=== PATIENT | male | born 1940 | race Caucasian/White ===

== ENCOUNTER 2017-02-09 23:40 | Emergency (ER) | payer MEDICARE ==
--- NOTE | ~2017-02-09 | CR173 ---
[facility] A Service of [facility] & [facility] RADIOLOGY TEXT RESULTS PATIENT: NOEMI NEWMAN LOCATION: [facility] : 38 UNIT #: [id number] AGE: [address]: Trung Villar MD SEX: M ORDER DR: [id number] [facility] [address] [place], [place] [address] [id number] E MR#: [id number] Acc #: [id number] NAME: NOEMI NEWMAN : 1940 SEX: M STUDY DATE/TIME: 02/10/2017 1:47 UNIT: [facility] ROOM: STUDY DESCRIPTION: CR Knee 3 Views Rt Attending Physician: John Villar M.D. Ordering Physician: John Villar M.D. Primary Care Physician: No Primary Care Physician MEDICAL IMAGING REPORT This report is preliminary unless electronic signature is present EXAM 3-view right knee HISTORY Bilateral knee pain onset today. FINDINGS 3 views of the right knee demonstrates no fracture or dislocation. Mild degenerative changes right knee with medial joint space narrowing developing marginal osteophytes. No joint effusion. Arterial vascular calcifications noted. Generalized osteopenia. IMPRESSION Osteopenia and early degenerative change of the right knee. No acute findings. Dictated by... Charles España M.D. THIS IS AN ELECTRONICALLY VERIFIED REPORT Charles España M.D. at 02/10/2017 10:33 PM YAIMA/irena TD: 02/10/2017 03:04 JOB #: [id number] MEDICAL IMAGING REPORT Page 1 of 1 COPY
--- NOTE | ~2017-02-09 | CR172 ---
[facility] A Service of [facility] & [facility] RADIOLOGY TEXT RESULTS PATIENT: NOEMI NEWMAN LOCATION: [facility] : 38 UNIT #: [id number] AGE: [address]: Trung Villar MD SEX: M ORDER DR: [id number] [facility] [address] [place], [place] [address] [id number] E MR#: [id number] Acc #: [id number] NAME: NOEMI NEWMAN : 1940 SEX: M STUDY DATE/TIME: 02/10/2017 1:50 UNIT: [facility] ROOM: STUDY DESCRIPTION: CR Knee 3 Views Lt Attending Physician: John Villar M.D. Ordering Physician: John Villar M.D. Primary Care Physician: No Primary Care Physician MEDICAL IMAGING REPORT This report is preliminary unless electronic signature is present EXAM Left knee 3 views HISTORY Bilateral knee pain onset today. FINDINGS 3 views of the left knee demonstrates mild degenerative changes left knee particularly involving the patellofemoral joint. Generalized osteopenia. No fracture or dislocation. No joint effusion. Arterial vascular calcifications noted. IMPRESSION Generalized osteopenia and early degenerative changes left knee particularly in the patellofemoral joint. No acute findings Dictated by... Charles España M.D. THIS IS AN ELECTRONICALLY VERIFIED REPORT Charles España M.D. at 02/10/2017 10:33 PM YAIMA/irena TD: 02/10/2017 03:05 JOB #: [id number] MEDICAL IMAGING REPORT Page 1 of 1 COPY
[~2017-02-09 23:40] MED LIST: ACETAMINOPHEN PO; CERTAGEN PO; COLACE PO; CYANOCOBAL1000 MCG/M INJ; FLOMAX0.4 MG PO; MILK OF MAGNESIA PO; PERCOCET10 PO; PRILOSEC PO; TRAZODONE PO
== END 2017-02-10 06:13 | disposition home or self-care (01) ==
LOC: CED 23:40
DX: S80.02XA Contusion of left knee, initial encounter (principal); S80.01XA Contusion of right knee, initial encounter; I10 Essential (primary) hypertension; M19.90 Unspecified osteoarthritis, unspecified site; F17.210 Nicotine dependence, cigarettes, uncomplicated; Z98.890 Other specified postprocedural states
CPT/HCPCS: 73562; 99284